=== PATIENT | female | born 1960 | race Caucasian/White ===

== ENCOUNTER 2018-02-20 14:48 | Emergency (ER) | payer SELFPAY, BC, OTHER ==
[2018-02-20] MEDS: IBUPROFEN 600 MG TAB PO (17:43)
== END 2018-02-20 18:45 | disposition home or self-care (01) ==
LOC: FTE 14:48
DX: S50.11XA Contusion of right forearm, initial encounter (principal); W01.0XXA Fall on same level from slipping, tripping and stumbling without subsequent striking against object, initial encounter; Y92.9 Unspecified place or not applicable
CPT/HCPCS: 73090; 73090-RT; 99283-25